=== PATIENT | male | born 1965 | race Caucasian/White ===

== ENCOUNTER 2018-03-25 02:20 | Inpatient (IN) | payer OTHER ==
[~2018-03-25] VITALS: Ht 182.9 cm; Wt 129.3 kg
[~2018-03-25 02:20] MED LIST: ALLOPURINOL300 M1 PO; ALLOPURINOL300 MG PO; FISH OIL 1,0001 EAC3 PO; METOPROLOL SUCC25 M1 PO; PRILOSEC 20MG C20 MG PO
--- NOTE | 2018-03-25 07:57 | Operative Report ---
Operative/Inv Procedure Report Surgery Date: 03/25/18 Name of Procedure: C3/4 ACDF with [place] tritanium interbody cage, autograft, DBM, aviator anterior plate and screws Pre-Operative Diagnosis: C3/4 HNP, spondylosis and stenosis Post-Operative Diagnosis: same Estimated Blood Loss: min Surgeon/Gold Nib Grinder: Bryce IGLESIAS,Mayur Hussein MD Anesthesia: general endotracheal tube Monitors: neurophysiologic monitoring IV Fluids: 1L crystolloid Implants: tawanda Drains: med HV Specimens: C3/4 disc material Complications: none Condition: stable Operative Indication: 53yo man s/p work injury with progressive neck and left UE pain and parasthesias noted to have large C3/4 HNP superimposed on DDD with end plate osteophytes and focal kyphosis failed conservative tx and now presents for surgical decompression and stablilization. Operative/Procedure Note Note: Patient was taken the operating room. After appropriate patient identification and surgical timeout, neurophysiologic monitoring leads were placed and baseline recordings were obtained. Patient underwent smooth induction of general endotracheal anesthesia without incident.. Monitoring was stable after intubation. The patient was positioned supine on the operating table with the neck gently extended on a donut and the shoulders retracted downward with tape. Following positioning, monitoring was rechecked and noted to be stable. Patient was given 1 g of IV vancomycin and 1g IV kefzol in preoperative prophylaxis. DVT prophylaxis was utilized throughout the case. The left ventral neck was widely prepped and draped in usual sterile fashion using povidone iodine solution. A transverse linear skin incision was marked beginning in the midline and extending to the left a proximally 3 cm several in a pre-existing neck fold. The C-arm fluoroscope was sterilely draped in the field and we confirmed that the planned incision was immediately overlying the C3/4 interspace. The skin was infiltrated with local anesthetic. Skin incision was made with a 10 blade knife dissection was carried down through the subcutaneous tissue with the Bovie to the platysma muscle. The platysma was elevated and divided. Subplatysmal planes were created rostrally and caudally to facilitate tissue mobilization. The medial aspect of the sternocleidomastoid muscle was identified. The overlying fascia was incised in a rostral caudal fashion. A combination of digital and blunt dissection was used medial to the sternocleidomastoid and lateral to the trachea and esophagus down to the prevertebral fascia. The carotid sheath was identified and retracted laterally under hand-held retractor. The prevertebral fascia was incised and swept off the ventral aspect of the vertebral bodies with a peanut. Disc spaces were identified. A small gauge spinal needle was placed superficially within the disc space and confirm the level of C3/4. With the correct level verified, the disc space was marked with the Bovie and the longus coli muscles were reflected bilaterally. Self-retaining retractors were placed beneath the muscle. An annulotomy was performed with a 15 blade knife and a superficial discectomy was done with small straight and angled curettes and pituitary rongeurs. The osteophytes were removed with a [place] rongeur and the bone saved for subsequent arthrodesis to the back table. [place] pins were placed in the midpoint of the vertebral bodies in the disc space was gently distracted under direct and fluoroscopic guidance. Following distraction of the disc space, neurophysiologic monitoring was rechecked and noted to be stable. Discectomy at C3/4 was completed using combination of small straight and angled curettes and pituitary rongeurs. Findings included a disc osteophyte complex into the proximal foramen with compression of the exiting roots. Endplate osteophytes were resected with kerrisons. The remainder of the posterior longitudinal ligament was sequentially divided and removed with a 2 mm Kerrison punch until an excellent decompression of the underlying thecal sac was accomplished. Once removal of all the disc material, the dural sac appeared nicely decompressed. Once the decompression was completed, meticulous hemostasis was achieved using Surgifoam in the epidural space and a cottonoid severo. All cartilaginous endplates were removed using combination of curettes and the Midas Morgan drill to prepare the endplates for arthrodesis. Following the decompression, neurophysiologic monitoring was rechecked and noted to be stable. We then proceeded to arthrodesis and placement of the instrumentation. After appropriate trials, a 7 mm x 14 tritanium cage was selected. We filled the cage with demineralized bone matrix and morselized autograft from the osteophytectomy and gently tamped the cage into the C3/4 disc space under direct and fluoroscopic guidance. Once the cage was in position, we proceeded with placement of the anterior plate. The [place] retractor was released compressing the cage between the respective vertebral bodies in the [place] pins were removed. A small amount of bone bleeding was easily controlled with bone wax. After appropriate trials, 12 mm [place] anterior aviator plate was selected and provisionally placed from C3 to C4 with a plate-holding pin. The plate was then affixed to the vertebral body in a standard fashion with a series of 4, 16 mm screws. Screws placed by piercing the bone with an awl and placing a self drilling self-tapping screw with the C3 and C4 screws divergent from the vertebral endplates. The screws were finally tightened deploying the locking mechanism at all 4 locations. Final AP and lateral x-rays were obtained and saved and showed excellent position of the interbody cage and instrumentation. The retractors were removed. Hand-held retractors were then placed back into the wound which was inspected and meticulous hemostasis is achieved prior to wound closure. A small Hemovac drain was placed into the wound and secured to the skin with a 2-0 nylon suture. The platysma muscle was reapproximated with interrupted 3-0 Vicryl suture. Skin was closed in layers with interrupted 3-0 Vicryl suture in the dermis and a running 4-0 Vicryl subcutaneous stitch in the skin. The wound was cleaned and dried. Steri-Strips and a sterile occlusive dressing was placed. The patient was placed in a soft cervical collar. He was awakened in the operating room, extubated, and taken to PACU in stable condition. He was noted to be moving all 4 extremities at the completion of the case. All sponge needle and instrument counts are correct at the completion of procedure 3. Neurophysiologic monitoring was stable throughout the case. Discharge Disposition: PACU and instrument counts are correct at the completion of procedure 3. Neurophysiologic monitoring was stable throughout the case. Discharge Disposition: PACU
--- NOTE | 2018-03-25 10:01 | Operative Report ---
Operative/Inv Procedure Report Surgery Date: 03/25/18 Name of Procedure: C3 4 anterior cervical discectomy and fusion use of [place] anterior plating system aviator use of [place] intervertebral biomechanical device titanium C autograft use of allograft use of fluoroscopic guidance Pre-Operative Diagnosis: Cervical spondylosis Post-Operative Diagnosis: Same Estimated Blood Loss: less than 50ml Surgeon/Meter Shop Supervisor: Mayur Wu MD,Margarita Mckeon Anesthesia: general endotracheal tube Operative/Procedure Note Note: After the successful administration of general endotracheal anesthesia all lines tubes and monitors was a 16 the patient positioned supine with head gently extended the transverse roll was placed across her shoulders facilitating extension of his neck. We used the fluoroscope to plan the skin incision the left anterior neck over the C3 4 disc space. The patient was then prepped and draped in standard fashion #15 blade was used to incise the skin. Dissection was carried down to the platysma down to the deep cervical fascia the carotid sheath was retracted laterally the trachea and esophagus were retracted medially with a lipped retractor. The deep cervical fascia was divided with Bovie cautery bipolar cautery was also used to quell any veins that were encountered and tied off. We elevated longus coli after confirming level fluoroscope soft tissue retractors were inserted longus coli bilaterally. A #11 blade was used to incise the disc space the disc was removed with comminution of curettes pituitaries. Aspirin pins are placed the bodies of C3 and C4 in-line distraction was placed. We then used a high-speed drill to drill the bony cartilage endplates as well as drilling spurs were taken down. Kerrison punch was used to resect the PLL generous foraminotomies were performed thecal sac was pulsatile was no signal changes and sensors are motors. A #7 spacer the appropriate size was trialed and confirmed fluoroscopic guidance a 7 mm titanium C cages packed morselized autograft and allograft and packed the disc space and fluoroscopic guidance [place] pins removed the holes waxed with bone wax. A 12 mm [place] aviator plate was held placed a temporary holding pin and awl was used placed company pilot holes and then 16 mm variable self drill screws were placed there were locked and the locking mechanism which was taken down, holding pins removed last screw was placed. Heart was in excellent position based off of fluoroscopic shots was irrigated retractors were removed and hemostasis obtained was then closed in layers after a separate stab incision a number for ASHLEY drain was placed. The platysma and deep dermis was closed as was the subcuticular layer a dry sterile dressing was applied and the case all needle counts sponge and instruments were correct. The patient was taken to recovery room in stable condition.
[2018-03-25 12:00] VITALS: BP 140/70
--- NOTE | 2018-03-25 12:56 | RADIOLOGY REPORT ---
EXAMINATION: XR CERVICAL SPINE CLINICAL INFORMATION: C3-C4 ACD fusion COMPARISON: CT of the cervical spine 11/26/2017 TECHNIQUE: 4 fluoroscopic spot images are obtained in the OR. Fluoroscopy time was 11 seconds. FINDINGS: For sequential fluoroscopic spot images are obtained in the OR, the second image demonstrates a radiopaque marker projecting over the C3-C4 intervertebral disc space. Subsequent image demonstrates anterior fusion at C3-C4. IMPRESSION: Fluoroscopy was provided in the OR during C3-C4 ACD fusion. Refer to full operative report for full procedure details.
[2018-03-25 14:00] VITALS: BP 120/110
--- NOTE | 2018-03-25 15:13 | PN- Student ---
Subjective Subjective: POST OP CHECK /10 non radiating, pain around base of neck. feels sore. No pain in extermities. Able to drink from straw at bedside. No nausea, no vomiting, no abdominal pain. No shortness of breath, no chest pain, no calf pain. has not used bathroom or been OOB since surgery. Objective Objective: Vitals: Temp: 97.2 oral = tmax=tcurrent Pulse: 62 Respiratory rate: 18 BP: 120/110 Pulse Ox: 94% 2L nasal cannula I/O's I: 480 oral 24hour O: not recordrd Imaging: Fluoroscopy was provided in the OR during C3-C4 ACD fusion. Refer to full operative report for full procedure details. Labs: none Physical Exam: General: no acute distress. Patient uncomfortable. Neck: swallowing motion intact Pulm: clear to auscultation bilaterally Cardio: s1,s2, RRR Abdomen + bowel sounds, non tenders Extremities: Gross sensation intact upper and lower extremities. 5/5 strenghts making fist, dorsi/plantar flexion. Calves soft bilaterally, non tender on left, tender on right. Wound site: drain in place, 25 serosanguinous drainage. dressing intact with mild amount of serosanguinous drainage. Assessment/Plan Assessment: 53 year old male, POD 0 s/p C3/C4 anterior cervical discectomy and fusion. Doing well with gross sensation in extremities and able to swallow. Plan: Pain control plan - PRN Post op ABX Heparin/ALPS for DVT prophylaxis DC planning Discuss with preceptor
--- NOTE | 2018-03-25 16:00 | Patient Discharge Instructions ---
Discharge Instructions General Discharge Information You were seen/treated for: C3-4 disc herniation, spinal stenosis, and spondylosis You had these procedures: ACDF C3-4 Watch for these problems: Increasing pain despite the use of pain medication Increasing redness, warmth or swelling Drainage of any type from incision Fever greater than 101.5 Inability to swallow or difficulty speaking Difficulty breathing Weakness to bilateral arms or legs Do not soak the wound: Yes Other wound care: Keep wound clean and dry Collar at all times until otherwise indicated by Dr. Wu Diet Continue normal diet: Yes Recommended Diet: Regular Acute Coronary Syndrome Inclusion Criteria At DC or during hospital stay patient has or had the following: ACS DIAGNOSIS No Discharge Core Measures Meds if any: Prescribed or Continued at Discharge Meds if any: NOT Prescribed or Continued at Discharge Congestive Heart Failure Inclusion Criteria At DC or during hospital stay patient has or had the following: CHF DIAGNOSIS No Discharge Core Measures Meds if any: Prescribed or Continued at Discharge Meds if any: NOT Prescribed or Continued at Discharge Cerebrovascular accident Inclusion Criteria At DC or during hospital stay patient has or had the following: CVA/TIA Diagnosis No Discharge Core Measures Meds if any: Prescribed or Continued at Discharge Meds if any: NOT Prescribed or Continued at Discharge Venous thromboembolism Inclusion Criteria VTE Diagnosis No VTE Type NONE VTE Confirmed by (Test) NONE Discharge Core Measures - Per Current guidelines, there needs to be overlap - treatment for the first 5 days of Warfarin therapy. - If discharged on Warfarin prior to 5 days of - overlap therapy, the patient will need to be - assessed for post discharge needs including - *Post discharge parental anticoagulation - *Warfarin and/or parental anticoagulation education - *Follow up date to check INR post discharge At least 5 days overlap therapy as Inpatient No Meds if any: Prescribed or Continued at Discharge Note: Overlap Therapy is Warfarin and Anticoagulant Meds if any: NOT Prescribed or Continued at Discharge
[2018-03-25 16:10] VITALS: BP 138/88
--- NOTE | 2018-03-25 16:10 | Surgical Discharge Summary ---
Visit Information Visit Dates Admission Date: 03/25/18 Discharge Date: 03/26/2018 History of Present Illness Chief Complaint: Neck pain, upper extremity weakness/numbness due to C3-4 HNP and spinal stenosis Medical History Blood Transfusion Hx: No Neurological: NONE EENT: allergies Cardiovascular: NONE Respiratory: NONE Gastrointestinal: diverticulitis Hepatic: NONE Renal: NONE Musculoskeletal: disk herniation Psychiatric: NONE Endocrine: NONE Blood Disorders: NONE Cancer(s): NONE QA CONSULTANT/Reproductive: NONE History of MRSA: No History of VRE: No History of CDIFF: No Isolation History: Standard Surgical History Pertinent Surgical History: 3 FINGERS R HAND AMP TONSILLECTOMY Psychosocial History Where Do You Live? Home Who Do You Live With? Family Services at Home: None What is Your Primary Language? Mosotho Review of Systems: See H&P Hospital Course Course Attending Physician: Margarita Wu MD Primary Care Physician: Tete IGLESIAS,[place] Hospital Course: Patient was admitted to the hospital on 03/25/2018 for an elective ACDF at levels C3-4. He tolerated the procedure well and was transferred to a general surgical floor. There his diet was advanced and tolerated, he showed no deficit when speaking and swallowing. He voided spontaneously. At the time of hospital discharge, his vital signs were stable and within normal limits, his neurovascular status was intact and his pain was controlled with oral pain medications. He was deemed appropriate for discharge to home and was given instructions to follow up with Dr. Wu in 1-2 weeks. Allergies: Coded Allergies: shellfish derived (SEVERE VOMITING AND DIARRHEA 03/24/18) Disposition Summary Disposition Principal Diagnosis: HNP c3-4 Additional Diagnosis: None Discharge Disposition: home or self care Discharge Instructions General Discharge Information Code Status: Full Code Patient's Diet: Regular, advance as tolerated Patient's Activity: No heavy lifting, collar at all times until otherwise indicated by Dr. Wu Follow-Up Instructions/Appts: Follow up with Dr. Wu in 1-2 weeks from date of surgery. Please call office to arrange/confirm this appointment. Medications at Discharge Discharge Medications: Continue taking these medications: Allopurinol (Allopurinol) 300 MG TABLET 1 Tablet ORAL DAILY Qty = 30 Comments: Last Taken: 03/26/18 Time: 8:00 AM [place]-3/Dha/Epa/Fish Oil (Fish Oil 1,000 MG Softgel) 250 MG-500 MG-1,000 MG CAPSULE 1 Tablet ORAL DAILY Comments: NOT GIVEN IN HOSPITAL Metoprolol Succinate (Metoprolol Succinate) 25 MG TAB 1 Tablet ORAL DAILY Comments: Last Taken: 03/26/18 Time: 8:00 AM Start taking the following new medications: Cephalexin (Keflex) 500 MG CAPSULE 1 Tablet ORAL Q6H Qty = 20 No Refills Comments: NOT GIVEN IN HOSPITAL Oxycodone HCl/Acetaminophen (Percocet 5-325 MG Tablet) 5 MG-325 MG TABLET 1-2 Tablet ORAL EVERY 4-6 HOURS as needed for PAIN Qty = 36 No Refills Comments: Last Taken: 03/26/18 Time: 8:00 AM
--- NOTE | 2018-03-25 16:35 | Admission Core Measures ---
Acute Coronary Syndrome (CM) ACS Core Measures Acute Coronary Syndrome Diagnosis No Congestive Heart Failure (NEW) CHF Core Measures Congestive Heart Failure Diagnosis No Cerebrovascular Accident CVA Core Measures CVA/TIA Diagnosis No Venous Thromboembolism VTE Core Maryanne (View Protocol) VTE Risk Factors Surgery No Mechanical VTE Prophylaxis d/t N/A MechProphylax Ordered No VTE Pharm Prophylaxis d/t NA PharmProphylax ordered Problem List As ranked by this Provider includes Assessment & Plan 1. HNP (herniated nucleus pulposus), cervical HOME MEDS Home Med List Allopurinol 300 MG TABLET 1 TAB PO DAILY GOUT (Reported) Metoprolol Succinate 25 MG TAB 1 TAB PO DAILY HEART/BP (Reported) [place]-3/Dha/Epa/Fish Oil (Fish Oil 1,000 MG Softgel) (Unknown Strength) CAPSULE (Unknown Dose) PO DAILY SUPPLEMENT (Reported)
[2018-03-25] MEDS ORDERED: KEFLEX500 M1 PO (17:18)
[2018-03-25] MEDS ORDERED: PERCOCET 5-3251 EACH PO (17:18)
[2018-03-25 18:12] VITALS: BP 122/82
[2018-03-25 20:53] VITALS: BP 130/82
[2018-03-26 01:08] VITALS: BP 128/92
[2018-03-26 04:05] VITALS: BP 140/100
--- NOTE | 2018-03-26 07:43 | PN- Neurosurgical ---
Subjective Subjective: Pt doing well this am. No complaints. Objective Vital Signs and I&Os Vital Signs Date Time Temp Pulse Resp B/P B/P Pulse O2 O2 Flow FiO2 Mean Ox Delivery Rate 03/26 0405 97.5 76 20 140/100 94 Room Air 03/26 0108 128/92 03/25 2053 97.6 59 17 130/82 95 Room Air 03/25 1812 97.5 73 17 122/82 92 Room Air 03/25 1610 97.6 75 18 138/88 94 Room Air 03/25 1400 97.2 62 18 120/110 94 Nasal 2.0L Cannula 03/25 1351 Nasal 2.0L Cannula 03/25 1350 96 Nasal 2.0L Cannula 03/25 1210 96 Nasal 2.0L Cannula 03/25 1200 97.5 86 18 140/70 96 Nasal 2.0L Cannula Intake & Output 03/26 0800 03/26 0000 03/25 1600 03/25 0800 03/25 0000 03/24 1600 Intake Total 800 480 Output Total 825 820 Balance -825 -20 480 Intake, Oral 800 480 Output, 20 Drainage Output, Urine 825 800 Patient 129.274 kg 129.274 kg Weight Weight Reported by Patient Measurement Method Physical Exam: AF, VSS awake and alert, sitting in chair maxx po yest without dysphagia voice clear, no hoarseness neuro exam is stable all 4 extrem incision is c,d,i flat min out HV overnight ambulatory, voiding on own right calf stable superficial skin wound, no drainage, min erythema, no swelling Current Medications: Current Medications Sig/Karlie Start time Last Medication Dose Route Stop Time Status Admin Acetaminophen 650 MG Q4P PRN 03/25 1230 AC PO Allopurinol 300 MG DAILY 03/26 0900 AC PO Bisacodyl 10 MG DAILY PRN 03/25 1230 AC MT Cefazolin Sodium 2 GM IQ8 03/25 1600 DC 03/26 N/A 1 UNIT IV 03/26 0029 0056 Cefazolin Sodium 2,000 MG ONCE 03/25 0000 DC IV 03/25 2359 Diazepam 5 MG Q8P PRN 03/25 1230 AC PO Docusate Sodium 100 MG BID 03/25 2100 AC 03/25 PO 2135 Heparin Sodium 5,000 UNIT Q8 03/26 0600 AC 03/26 (Porcine) SC 0618 Hydromorphone HCl 1 MG Q4-6 PRN PRN 03/25 1230 AC IV Hydromorphone HCl 2 MG Q4-6 PRN PRN 03/25 1230 AC 03/26 IV 0355 Metoprolol Succinate 25 MG DAILY 03/26 0900 AC PO Ondansetron HCl 4 MG Q6P PRN 03/25 1230 AC IV Oxycodone/ 2 TAB Q4P PRN 03/25 1230 AC 03/26 Acetaminophen PO 0111 Sodium Chloride 1,000 ML Q10H 03/25 1230 DC IV 03/26 0829 Trimethobenzamide HCl 200 MG Q6P PRN 03/25 1230 AC IM Assessment/Plan Assessment/Plan Pt POD1 s/p C3/4 ACDF and doing well. Neuro intact. Plan: -dc drain -home this am -complete 5 days of oral keflex 500qid for right calf ulcer/burn prophylactic given instrumented cervical fusion -fu with me 2 wks -dc instructions given- no driving, no lift more than 5 lbs, no submerging incision, cover for showers -soft collar prn -soft mech diet for dc Core Measures Venous Thromboembolism VTE Risk Factors Surgery No Mechanical VTE Prophylaxis d/t N/A MechProphylax Ordered No VTE Pharm Prophylaxis d/t NA PharmProphylax ordered Attending MD Review Statement Attending Statement Attending MD Statement: examined this patient, discuss w/resident/PA/SALES ORDER COORDINATOR, discussed w/nursing
[2018-03-26 08:01] VITALS: BP 110/80
== END 2018-03-26 09:22 | DRG 472 ==
LOC: SDA 02:20 → ENRESERV 11:02 → ENTRNSPT 11:29 → EDTRNSPTSTS 11:40 → EDTRNSPT 11:40 → 2NB 11:48 → CMPTRNSPT 11:58 → ENPENDDIS 03-26 08:29 → 2NB 03-26 09:22
PROC: 0RG10A0 Fusion of Cervical Vertebral Joint with Interbody Fusion Device, Anterior Approach, Anterior Column, Open Approach (ICD-10-PCS; principal; 2018-03-25)
PROC: 0RT30ZZ Resection of Cervical Vertebral Disc, Open Approach (ICD-10-PCS; 2018-03-25)
DX: M48.02 Spinal stenosis, cervical region (principal); M50.01 Cervical disc disorder with myelopathy, high cervical region; E78.5 Hyperlipidemia, unspecified; G47.30 Sleep apnea, unspecified; M10.9 Gout, unspecified
CPT/HCPCS: 2NBSP; 36415; 72040; J0131; J0690; J1644; J2405; J3250; J3370; J3490